=== PATIENT | female | born 2000 | race Caucasian/White ===

== ENCOUNTER 2019-01-12 23:27 | Emergency (ER) | payer SELFPAY ==
[2019-01-12] MEDS ORDERED: NS 0.9% 1000 ML** 1,000 ML IV ONE (23:29)
[2019-01-12] MEDS ORDERED: Ondansetron INJ* 2 MG/ML VIAL IV ONE (23:30)
[2019-01-12] MEDS ORDERED: Pantoprazole IV* 40 MG IV ONE (23:30)
[2019-01-12 23:56] LABS: ABS Basophils 0.1 10^3/ul (0-0.2); ABS Lymphocytes 2.5 10^3/ul (1.0-4.8); ABS Monocytes 0.7 10^3/ul (0-0.8); ABS Neutrophils 8.3 10^3/ul (1.5-7.7); Eosinophil % 0.3 %; Hematocrit 40 % (35-47); Hemoglobin 13.3 g/dL (12.0-16.0); Lymphocyte % 21.4 %; Mean Corpuscular HGB Conc 33 g/dL (31-36); Mean Corpuscular Hemoglobin 29 pg (27-31); Mean Corpuscular Volume 86 fL (80-97); Mean Platelet Volume 8.3 fL (7.4-10.4); Platelet Count 208 10^3/uL (150-450); Red Blood Count 4.62 10^6 /uL (3.70-4.87); Red Cell Distribution Width 13 % (10-15); White Blood Count 11.5 10^3/uL (3.5-10.8)
--- NOTE | 2019-01-12 23:57 | ED ---
Substance Abuse/Use - HPI Summary HPI Summary: Seen at 11:27 Level 5 Caveat - Alcohol Intoxication This patient is a 18 year old F presenting to [facility] with a chief complaint of alcohol intoxication. Pt did not fall or get hurt. Her last period was approx one week ago. Pt was vomiting and then her friends called EMS. - History Of Current Complaint Chief Complaint: EDSubstanceAbuse Stated Complaint: ETOH PER EMS Time Seen by Provider: 01/12/19 23:28 Hx Obtained From: Patient Hx From Patient Unobtainable Due To: Other - Level 5 Caveat - Alcohol Intoxication Hx Last Menstrual Period: approx 01/06/19 Ingestion History: Type/Name Of Drug - EtOH Timing Of Abuse: Binge Use Aggravating Factor(s): Nothing Alleviating Factor(s): Nothing Associated Signs And Symptoms: Vomiting - Allergies/Home Medications Home Medications: Home Medications NK [No Home Medications Reported] 01/13/19 [History Confirmed 01/13/19] PMH/Surg Hx/FS Hx/Imm Hx Previously Healthy: No - Level 5 Caveat - Alcohol Intoxication - Immunization History Date of Tetanus Vaccine: assumed utd Infectious Disease History: No Infectious Disease History: Denies: Traveled Outside the [place] in Last 30 Days - Family History Known Family History: Positive: Unknown - Level 5 Caveat - Alcohol Intoxication - Social History Smoking Status (MU): Unknown if Ever Smoked - Additional Comments History Additional Comments: Level 5 Caveat - Alcohol Intoxication Review of Systems Positive: Vomiting, Nausea All Other Systems Reviewed And Are Negative: No - Comments Additional Review of Systems Comments: Level 5 Caveat - Alcohol Intoxication Physical Exam - Summary Physical Exam Summary: General: Well-developed, Well-nourished female. No acute distress. Vomiting upon arrival HEENT: Normocephalic, Atraumatic. Eyes: Conjuctiva normal, PERRL. Oropharynx: Clear, mucous membranes moist, (-) exudates. Neck: Soft, FROM, (-) lymphadenopathy, (-) thyromegaly, (-) JVD. Cardiovascular: Normal sinus rhythm, (-) murmur. Lungs: Clear to auscultation bilaterally (-) wheezes, (-) rales, (-) rhonchi. Abdomen: Soft, non-tender, non-distended, (-) organomegaly, normal bowel sounds. Back: (-) CVA tenderness Extremities: No edema. Skin: Warm, dry, (-) rash. Neuro:Sleepy, arouses to voice Psychiatric: Mood normal, affect normal. Triage Information Reviewed: Yes Vital Signs On Initial Exam: Initial Vitals Temp Pulse Resp BP Pulse Ox 97.1 F 72 16 117/74 99 01/12/19 23:35 01/12/19 23:35 01/12/19 23:35 01/12/19 23:35 01/12/19 23:35 Vital Signs Reviewed: Yes Procedures - Sedation Patient Received Moderate/Deep Sedation with Procedure: No Diagnostics - Vital Signs Vital Signs Temp Pulse Resp BP Pulse Ox 01/12/19 23:35 97.1 F 72 16 117/74 99 - Laboratory Result Diagrams: 01/12/19 23:50 01/12/19 23:50 Lab Statement: Any lab studies that have been ordered have been reviewed, and results considered in the medical decision making process. Course/Dx - Course Course Of Treatment: 18-year-old female presents via ambulance with alcohol intoxication and vomiting. Patient is sleepy but arousable upon arrival. She is given IV fluids, Zofran and Protonix. Patient rests for a period of time and then is alert and oriented 3. Has a sober friend, and picked her up. Patient is discharged home. Follow with PCP. Follow-up sooner for any worsening symptoms. - Diagnoses Provider Diagnoses: Acute alcohol intoxication, Vomiting Discharge ED - Sign-Out/Discharge Documenting (check all that apply): Patient Departure - Discharge - Discharge Plan Condition: Stable Disposition: HOME Patient Education Materials: Alcohol Intoxication (ED), Acute Nausea and Vomiting (ED) Referrals: [facility] - Sanju ROJAS [Primary Care Provider] - 3 Days Additional Instructions: Please follow up with your primary care physician. Please return to ED for any new or worsening symptoms. - Billing Disposition and Condition Condition: STABLE Disposition: Home - Attestation Statements Document Initiated by Scribe: Yes Documenting Scribe: Chaya Steinberg Provider For Whom Shweta is Documenting (Include Credential): Dr. Bryanna Hood MD Scribe Attestation: Chaya Mcdonald scribed for Dr. Bryanna Hood MD on 01/13/19 at 0655. Scribe Documentation Reviewed: Yes Provider Attestation: The documentation as recorded by the Chaya gotti accurately reflects the service I personally performed and the decisions made by me, Dr. Bryanna Hood MD Status of Shweta Document: Viewed
[2019-01-13 00:16] LABS: ALT 20 U/L (7-52); AST 29 U/L (13-39); Albumin 4.6 g/dL (3.2-5.2); Albumin/Globulin Ratio 1.5 (1-3); Alkaline Phosphatase 49 U/L (34-104); Anion Gap 13 mmol/L (2-11); Blood Urea Nitrogen 17 mg/dL (6-24); CO2 Carbon Dioxide 22 mmol/L (22-32); Calcium 9.8 mg/dL (8.6-10.3); Chloride 104 mmol/L (101-111); EGFR African American 104.3 (>60); EGFR Non-African American 86.2 (>60); Glucose 101 mg/dL (70-100); Potassium 3.2 mmol/L (3.5-5.0); Sodium 139 mmol/L (135-145); Total Protein 7.6 g/dL (6.4-8.9)
[2019-01-13 00:21] LABS: Acetaminophen < 15 mcg/mL; Alcohol 260 mg/dL (<10); Salicylate < 2.50 mg/dL (<30)
[2019-01-13 00:23] LABS: HCG Pregnancy < 0.60 mIU/mL
[2019-01-13 05:10] VITALS: BP 122/71
== END 2019-01-13 03:45 | disposition home or self-care (01) ==
LOC: ED 23:27
DX: F10.929 Alcohol use, unspecified with intoxication, unspecified (principal); R11.10 Vomiting, unspecified
CPT/HCPCS: 36415; 80053; 80320; 80329; 83605; 84702; 85025; 96374; 96375; 99282; G0480; J2405